=== PATIENT | female | born 1985 | race African-American/Black ===

== ENCOUNTER 2018-01-02 10:54 | Emergency (ER) | payer OTHER ==
[2018-01-02] MEDS ORDERED: IBUPROFEN 600 MG TABLET PO ONE (11:22)
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
[2018-01-02 12:50] VITALS: BP 117/75
== END 2018-01-02 12:50 | disposition home or self-care (01) ==
LOC: ER 10:54
DX: S16.1XXA Strain of muscle, fascia and tendon at neck level, initial encounter (principal); S29.019A Strain of muscle and tendon of unspecified wall of thorax, initial encounter; S80.01XA Contusion of right knee, initial encounter; M54.2 Cervicalgia; M54.89 Other dorsalgia; R51 Headache; M25.561 Pain in right knee; V47.5XXA Car driver injured in collision with fixed or stationary object in traffic accident, initial encounter
CPT/HCPCS: 70450; 99283